=== PATIENT | female | born 2000 | race American Indian/Alaskan Native ===

== ENCOUNTER 2022-05-21 12:00 | Emergency (ER) | payer MEDICAID, OTHER ==
[2022-05-21 13:46] VITALS: BP 112/76
[2022-05-21 14:31] LABS: HCG Qualitative,Urine Positive (Negative)
[2022-05-21 14:36] LABS: Mucus,Urine FEW /HPF
--- NOTE | 2022-05-21 14:47 | Emergency Department Report ---
ED Female HPI - General Chief complaint: Urogenital-Female Stated complaint: ABD PAIN/POSSIBLY Time Seen by Provider: 05/21/22 14:00 Source: patient Mode of arrival: Ambulatory Limitations: No Limitations - History of Present Illness Initial comments: 22yo comes to ER with concerns that she is . no vag bleeding or discharge. This would be first . Denies having taken a home test. lmp 7-8 Severity scale (0 -10): 0 - Related Data Sexually active: Yes Previous Rx's Medication Instructions Recorded Last Taken Type Acetaminophen [Acetaminophen 8 650 mg PO Q8H PRN #25 tablet.er 05/21/22 Unknown Rx Hour] Vit No.179/Iron/Folic 1 each PO DAILY #30 05/21/22 Unknown Rx [ Tablet] Allergies Allergy/AdvReac Type Severity Reaction Status Date / Time No Known Allergies Allergy Unverified 12/17/13 17:47 ED Review of Systems ROS: Stated complaint: ABD PAIN/POSSIBLY Other details as noted in HPI Comment: All other systems reviewed and negative ED Past Medical Hx - Past Medical History Previous Medical History?: No Hx Diabetes: No Hx Asthma: No Hx HIV: No - Surgical History Past Surgical History?: No - Family History Family history: no significant - Social History Smoking Status: Never Smoker Substance Use Type: None - Medications Home Medications: Home Medications Medication Instructions Recorded Confirmed Last Taken Type Acetaminophen [Acetaminophen 8 650 mg PO Q8H PRN #25 tablet.er 05/21/22 Unknown Rx Hour] Vit No.179/Iron/Folic 1 each PO DAILY #30 05/21/22 Unknown Rx [ Tablet] ED Physical Exam - General Limitations: No Limitations General appearance: alert, in no apparent distress - Head Head exam: Present: atraumatic, normocephalic - Eye Eye exam: Present: normal appearance - ENT ENT exam: Present: mucous membranes moist - Neck Neck exam: Present: normal inspection - Respiratory Respiratory exam: Present: normal lung sounds bilaterally. Absent: respiratory distress - Cardiovascular Cardiovascular Exam: Present: regular rate, normal rhythm. Absent: systolic murmur, diastolic murmur, rubs, gallop - GI/Abdominal GI/Abdominal exam: Present: soft, normal bowel sounds - Extremities Exam Extremities exam: Present: normal inspection - Back Exam Back exam: Present: normal inspection - Neurological Exam Neurological exam: Present: alert, oriented X3 - Psychiatric Psychiatric exam: Present: normal affect, normal mood - Skin Skin exam: Present: warm, dry, intact, normal color. Absent: rash ED Course Vital Signs 05/21/22 13:45 Temperature 97.9 F Pulse Rate 89 Respiratory 18 Rate Blood Pressure 112/76 [Right] ED Medical Decision Making - Medical Decision Making Labs 05/21/22 Unknown Specific [place] (Man) 1.010 Ur Protein (Man) 1+ Ur Ketones (Man) Negative Urine Bilirubin (Man) Negative Urine WBC (Auto) 3.0 Urine RBC (Auto) 1.0 U Epithel Cells (Auto) 3.0 Urine RBC (Manual) Negative Urine Mucus Few Urine HCG, Qual Positive A Vital Signs 05/21/22 13:45 Temperature 97.9 F Pulse Rate 89 Respiratory 18 Rate Blood Pressure 112/76 [Right] pt denies pain, discharge, dysuria, bleeding. preg pos first pt educated on next steps dc home with dc plan of care including diet, meds, activity and follow up. pt ambulatory, non ill, non toxic and taking po. - Differential Diagnosis ro preg Critical care attestation.: If time is entered above; I have spent that time in minutes in the direct care of this critically ill patient, excluding procedure time. ED Disposition Clinical Impression: Disposition: 01 HOME / SELF CARE / HOMELESS Is pt being admited?: No Does the pt Need Aspirin: No Condition: Stable Instructions: First Trimester of Additional Instructions: safe sex avoid drugs and alcohol tylenol for pain follow up with obgymichelle silvermanp referral below Referrals: EDMUND PIPER MD [Primary Care Provider] - 3-5 Days MIGUEL MUÑOZ MD [Staff Physician] - 3-5 Days Forms: Work/School Release Form(ED) Time of Disposition: 15:11
== END 2022-05-21 17:03 | disposition home or self-care (01) ==
LOC: ED 12:00
DX: O46.90 Antepartum hemorrhage, unspecified, unspecified trimester (principal); Z3A.00 Weeks of gestation of pregnancy not specified
CPT/HCPCS: 81001; 81025; 99283